=== PATIENT | female | born 1970 | race Caucasian/White ===

== ENCOUNTER → 2017-05-08 | Outpatient (CLI) | payer OTHER ==
--- NOTE | 2017-05-08 15:58 | XR ---
Right knee HISTORY: Chronic right knee pain 3 views of the right knee Bone mineralization, joint spaces and alignment are maintained. Mild spurring at the patellofemoral j oint. No evident joint effusion. IMPRESSION: No acute fracture or dislocation. Some mild osteoarthritic change is suspected.
== END ==
LOC: RADXRMAIN 11:25
PROVIDERS: ATTEND Nurse Practitioner Family
DX: M25.561 Pain in right knee (principal)

== ENCOUNTER → 2018-10-30 | Outpatient (CLI) | payer OTHER ==
--- NOTE | 2018-10-31 11:42 | MM ---
Reason for exam: screening (asymptomatic). Last mammogram was performed 2 years and 4 months ago. Physical Findings: A clinical breast exam by your physician is recommended on an annual basis and results should be correlated with mammographic findings. MG Screening Mammo w CAD Bilateral CC and MLO view(s) were taken. Prior study comparison: June 18, 2016, mammogram, performed at [facility]. May 30, 2015, mammogram, performed at [facility]. The breast tissue is heterogeneously dense. This may lower the sensitivity of mammography. No suspicious abnormality. No significant changes when compared with prior studies. ASSESSMENT: Negative, BI-RAD 1 RECOMMENDATION: Routine screening mammogram of both breasts in 1 year.
== END | disposition home or self-care (01) ==
LOC: RADMAMWWP 07:40
PROVIDERS: ATTEND Obstetrics & Gynecology
DX: Z12.31 Encounter for screening mammogram for malignant neoplasm of breast (principal)
CPT/HCPCS: 77067

== ENCOUNTER → 2019-04-14 | Outpatient (CLI) | payer OTHER ==
--- NOTE | 2019-04-14 11:33 | XR ---
EXAMINATION TYPE: XR Hip Bilateral Complete DATE OF EXAM: 04/14/2019 COMPARISON: NONE HISTORY: Pain TECHNIQUE: 2 views submitted FINDINGS: There is no evidence of erosive change or acute fracture. Hypertrophic change of the acetabulum great er on the left. Mild concentric narrowing of the hip joint bilaterally. IMPRESSION: 1. Bilateral hip arthropathy correlate for femoral acetabular impingement.
--- NOTE | 2019-04-14 11:35 | XR ---
EXAMINATION TYPE: XR knee 4V LT DATE OF EXAM: 04/14/2019 COMPARISON: NONE HISTORY: Pain TECHNIQUE: Four views are submitted. FINDINGS: Mild narrowing patellofemoral joint with hypertrophic change and medial compartment of the knee joint . No erosive changes. Small amount of fluid in the suprapatellar bursa. Osseous structures are intact . No acute fracture seen. IMPRESSION: 1. No acute fracture or dislocation. Small amount of fluid in the suprapatellar bursa. If concern fo r internal derangement of knee correlate with MRI.
== END | disposition home or self-care (01) ==
LOC: RADXRMAIN 10:57
PROVIDERS: ATTEND Pediatrics
DX: M25.562 Pain in left knee (principal); M25.551 Pain in right hip; M25.552 Pain in left hip
CPT/HCPCS: 73521

== ENCOUNTER → 2019-08-20 | Outpatient (CLI) | payer OTHER ==
--- NOTE | 2019-08-20 13:52 | MR ---
EXAMINATION TYPE: MR hip LT wo con DATE OF EXAM: 08/20/2019 COMPARISON: None HISTORY: Pain in left hip / Pain in lt knee TECHNIQUE: Multiplanar, multisequence images of the left hip were acquired without intravenous contrast. FINDINGS: Imaging of the pelvis is suboptimal given patient body habitus. No cam deformity is seen of either femoral head neck junction. The femoral heads maintain a normal ro unded contour. No evidence of avascular necrosis of either hip. Fissure is seen near the chondral lab ral junction however the labrum appears intact given the nonarthrographic examination. Trace amount o f fluid in the left hip is physiologic. No sizable joint effusion. There is increased intensity of th e musculature overlying the greater tuberosity of left hip with trace amount of overlying fluid. No d iscrete tear is seen. Mild thickening along segment of the sigmoid colon likely relates to incomplete distention. No surrounding inflammatory fat stranding IMPRESSION: 1. Insertional gluteal tendinosis without tear. Scant amount of overlying fluid also suggests greater trochanteric bursitis. 2. Mild left femoral acetabular arthropathy. Overall exam is suboptimal given patient body habitus. 3. No evidence of bone marrow edema, avascular necrosis, nor cam deformity of the left hip.
--- NOTE | 2019-08-20 14:16 | MR ---
EXAMINATION TYPE: MR knee LT wo con DATE OF EXAM: 08/20/2019 COMPARISON: 04/14/19 HISTORY: Pain in left hip / Pain in lt knee TECHNIQUE: Multiplanar, multisequence imaging of the left knee is performed without IV contrast. FINDINGS: MEDIAL MENISCUS: Anterior meniscal horn is intact without tear. There is a radial tear of the free ed ge of the posterior horn of the medial meniscus. LATERAL MENISCUS: Anterior and posterior horns are intact without tear. CRUCIATE LIGAMENTS: The anterior and posterior cruciate ligaments are intact and unremarkable. COLLATERAL LIGAMENTS: The medial collateral ligament and lateral collateral ligament complex are inta ct. Slight increased signal of the distal insertional fibers of the medial collateral ligament withou t tear. EXTENSOR MECHANISM: Visualized quadriceps and patellar tendons are intact. Mild increased signal in t he insertional fibers of the quadriceps tendon and patellar tendon. EFFUSION: No significant suprapatellar joint effusion. POPLITEAL CYST: No popliteal/quigley cyst. TRICOMPARTMENT SPACES: Mild patellofemoral compartment joint space narrowing and small patellofemoral compartment osteophytes are seen. Very small osteophyte of the medial tibial plateau. Joint spaces a re aligned. CARTILAGE: There is generalized cartilaginous thinning of the medial compartment cartilage with parti al-thickness defect measuring 1 cm of the weightbearing surface of the femoral condyle. There is sign al heterogeneity of the lateral compartment cartilage and of the lateral facet of the patellar cartil age. BONE MARROW SIGNAL: No focal abnormal marrow signal is appreciated. OTHER: Nonspecific infrapatellar subcutaneous edema. IMPRESSION: 1. Small radial tear of the free edge of the posterior horn of the medial meniscus. 2. Low-grade insertional fiber sprain of the medial collateral ligament. 3. Minimal increased signal in the insertional fibers of the quadriceps tendon and patellar tendon in dicative of mild tendinosis. 4. Mild patellofemoral compartment and very mild medial compartment arthropathy with mild tricompartm ental arthrosis and partial thickness cartilaginous defect of the medial femoral condyle.
== END | disposition home or self-care (01) ==
LOC: RADMRIMAIN 11:07
PROVIDERS: ATTEND Orthopaedic Surgery
DX: S83.242A Other tear of medial meniscus, current injury, left knee, initial encounter (principal); M17.12 Unilateral primary osteoarthritis, left knee; M12.862 Other specific arthropathies, not elsewhere classified, left knee; M12.852 Other specific arthropathies, not elsewhere classified, left hip; M76.02 Gluteal tendinitis, left hip; R93.6 Abnormal findings on diagnostic imaging of limbs

== ENCOUNTER → 2020-02-05 | Outpatient (CLI) | payer OTHER ==
--- NOTE | 2020-02-05 18:20 | XR ---
EXAMINATION TYPE: XR foot complete bilateral DATE OF EXAM: 02/05/2020 CLINICAL HISTORY: Bilateral foot pain. Right foot heel pain. Left foot pain in toe. TECHNIQUE: Frontal, lateral and oblique images of bilateral feet obtained. COMPARISON: None. FINDINGS: There is no acute fracture/dislocation evident of the bilateral feet. The overlying soft tissue appears unremarkable. The joint spaces in the bilateral feet are preserved. Bilateral planta r spurs. Accessory ossicles are seen bilaterally, including os navicular on the right and questionab le tiny os navicular on the left. IMPRESSION: 1. Bilateral plantar spurs. 2. No fracture or dislocation of the bilateral feet.
== END | disposition home or self-care (01) ==
LOC: RADXRMAIN 11:24
PROVIDERS: ATTEND Physician Assistant
DX: M79.672 Pain in left foot (principal)

== ENCOUNTER → 2020-07-08 | Outpatient (CLI) | payer OTHER ==
--- NOTE | 2020-07-08 12:21 | XR ---
EXAM TYPE: LUMBAR SPINE X RAY SERIES COMPARISON: NONE HISTORY: Pain TECHNIQUE: 4 views are submitted. FINDINGS: Alignment is anatomic. The pedicles are intact. The transverse processes are intact. There is grad e 1 anterolisthesis L4 and L5 with multilevel moderate degenerative disc disease and facet arthropath y. Anterior hypertrophic spurring noted. IMPRESSION: 1. Multilevel moderate to severe degenerative disc disease and facet arthropathy. Grade 1 anterolisth esis L4 on L5.
--- NOTE | 2020-07-08 12:21 | XR ---
EXAMINATION TYPE: XR thoracic spine complete DATE OF EXAM: 07/08/2020 CLINICAL HISTORY: pain TECHNIQUE: Frontal, lateral, and swimmer's view of thoracic spine are obtained. COMPARISON: None. FINDINGS: Thoracic spine show satisfactory alignment without evidence of acute fracture or dislocatio n. Vertebral body heights are preserved. Mild degenerative disc space narrowing and spondylosis iden tified. Visualized ribs are unremarkable. IMPRESSION: No acute fracture or dislocation is seen in the thoracic spine. ICD 10 NO FRACTURE, INIT IAL EVALUATION
== END | disposition home or self-care (01) ==
LOC: RADXRMAIN 10:49
PROVIDERS: ATTEND Physician Assistant
DX: M51.36 Other intervertebral disc degeneration, lumbar region (principal); M43.16 Spondylolisthesis, lumbar region; M47.816 Spondylosis without myelopathy or radiculopathy, lumbar region; M54.6 Pain in thoracic spine
CPT/HCPCS: 72072; 72110

== ENCOUNTER → 2021-02-01 | Outpatient (CLI) | payer OTHER ==
--- NOTE | 2021-02-01 14:42 | CT ---
EXAMINATION TYPE: CT sinus wo con DATE OF EXAM: 02/01/2021 COMPARISON: None HISTORY: Right side of nose and right ear congestion. CT DLP: 624.[address] of the paranasal sinuses was performed in the axial and coronal planes. Bone and soft tissue settings are submitted. The paranasal sinuses demonstrate normal aeration and development. The paranasal sinuses are free of mucosal thickening or air fluid level. The osteal meatal units are patent bilaterally. The nasal septum is midline. No bony destructive changes are seen within the field of view. IMPRESSION: Normal unenhanced CT of the paranasal sinuses.
== END | disposition home or self-care (01) ==
LOC: RADCTMAIN 14:10
PROVIDERS: ATTEND Pediatrics
DX: J34.89 Other specified disorders of nose and nasal sinuses (principal)
CPT/HCPCS: 70486

== ENCOUNTER → 2021-03-24 | Outpatient (CLI) | payer OTHER ==
--- NOTE | 2021-03-29 08:16 | MM ---
Reason for exam: screening (asymptomatic). Last mammogram was performed 1 year ago. Physical Findings: A clinical breast exam by your physician is recommended on an annual basis and results should be correlated with mammographic findings. MG Screening Mammo w CAD Bilateral CC and MLO view(s) were taken. Prior study comparison: March 18, 2020, bilateral MG screening mammo w CAD. October 30, 2018, bilateral MG screening mammo w CAD. There is chronic nodularity in the left breast. No significant changes when compared with prior studies. ASSESSMENT: Benign, BI-RAD 2 RECOMMENDATION: Routine screening mammogram of both breasts in 1 year.
== END | disposition home or self-care (01) ==
LOC: RADMAMWWP 11:10
PROVIDERS: ATTEND Obstetrics & Gynecology
DX: Z12.31 Encounter for screening mammogram for malignant neoplasm of breast (principal)
CPT/HCPCS: 77067

== ENCOUNTER → 2022-03-29 | Outpatient (CLI) | payer OTHER ==
--- NOTE | 2022-04-06 17:42 | MM ---
Reason for Exam: Screening (asymptomatic). Last screening mammogram was performed 12 month(s) ago. Patient History: Menarche at age 13. First Full-Term at age 27. Patient has history of breast feeding. Last menstrual period: 09/26/2021 Risk Values: Courtney 5 year model risk: 1.1%. NCI Lifetime model risk: 9.9%. Prior Study Comparison: 10/30/2018 Bilateral Screening Mammogram, [facility]. 03/18/2020 Bilateral Screening Mammogram, [facility]. 03/24/2021 Bilateral Screening Mammogram, [facility]. Tissue Density: The breast tissue is heterogeneously dense. This may lower the sensitivity of mammography. Findings: Analyzed By CAD. Intramammary lymph node in the left There is no suspicious group of microcalcifications or new suspicious mass in either breast. Overall Assessment: Benign, BI-RAD 2 Management: Screening Mammogram of both breasts in 1 year. A clinical breast exam by your physician is recommended on an annual basis and results should be correlated with mammographic findings. Electronically signed and approved by: Chapo Ibarra DO
== END | disposition home or self-care (01) ==
LOC: RADMAMWWP 16:02
PROVIDERS: ATTEND Obstetrics & Gynecology
DX: Z12.31 Encounter for screening mammogram for malignant neoplasm of breast (principal)
CPT/HCPCS: 77067

== ENCOUNTER → 2023-04-05 | Outpatient (CLI) | payer OTHER ==
--- NOTE | 2023-04-08 09:59 | MM ---
Reason for Exam: Screening (asymptomatic). Last screening mammogram was performed 12 month(s) ago. Patient History: Menarche at age 13. First Full-Term at age 27. Postmenopausal. Patient has history of breast feeding. Risk Values: Courtney 5 year model risk: 1.1%. NCI Lifetime model risk: 9.7%. Prior Study Comparison: 03/18/2020 Bilateral Screening Mammogram, [facility]. 03/24/2021 Bilateral Screening Mammogram, [facility]. 03/29/2022 Bilateral MG screening mammo w CAD, [facility]. Tissue Density: The breast tissue is heterogeneously dense. This may lower the sensitivity of mammography. Findings: Analyzed By CAD. There is no suspicious group of microcalcifications or new suspicious mass in either breast. Overall Assessment: Benign, BI-RAD 2 Management: Screening Mammogram of both breasts in 1 year. . Patient should continue monthly self-breast exams. A clinical breast exam by your physician is recommended on an annual basis. This exam should not preclude additional follow-up of suspicious palpable abnormalities. Note on Courtney scores and lifetime risk: 1. A Courtney score greater than 3% is considered moderate risk. If this is the case, consider specialist referral to assess eligibility for a risk reducing agent. 2. If overall lifetime risk for the development of breast cancer is 20% or higher, the patient may qualify for future screening with alternating mammogram and breast MRI. Electronically signed and approved by: Branden Chaves M.D. Radiologis
== END | disposition home or self-care (01) ==
LOC: RADMAMWWP 10:56
PROVIDERS: ATTEND Obstetrics & Gynecology
DX: Z12.31 Encounter for screening mammogram for malignant neoplasm of breast (principal); Z78.0 Asymptomatic menopausal state
CPT/HCPCS: 77067

== ENCOUNTER → 2024-05-08 | Outpatient (CLI) | payer BC ==
--- NOTE | 2024-05-12 18:45 | MM ---
Reason for Exam: Screening (asymptomatic). Last mammogram was performed 1 year(s) and 1 month(s) ago. Patient History: Menarche at age 13. First Full-Term at age 27. Postmenopausal. Patient has history of breast feeding. Hormonal Contraceptives, from age 17 until age 40. Risk Values: Courtney 5 year model risk: 1.2%. NCI Lifetime model risk: 9.6%. Prior Study Comparison: 03/24/2021 Bilateral Screening Mammogram, [facility]. 03/29/2022 Bilateral MG screening mammo w CAD, [facility]. 04/05/2023 Bilateral MG screening mammo w CAD, [facility]. Tissue Density: The breasts are heterogeneously dense, which may obscure small masses. Findings: Analyzed By CAD. The 2 areas of centrally located asymmetric density right cc view of middle depth are more defined. This may represent superimposition shadow but further evaluation is recommended. Chronic nodularity left breast along with additional unchanged areas of asymmetric density on both sides. Overall Assessment: Incomplete: need additional imaging evaluation, BI-RAD 0 Management: Special View Mammogram of the right breast. Additional views to include spot 3-D CC, 3-D CC rolled, and 3-D lateral views. [facility] will attempt to contact patient to return for supplemental views and ultrasound if indicated. [facility], , 05/12/2024 6:42 PM. Electronically signed and approved by: Alie Harrison M.D. Radiologist
== END | disposition home or self-care (01) ==
LOC: RADMAMWWP 13:43
PROVIDERS: ATTEND Pediatrics
CPT/HCPCS: 77067

== ENCOUNTER → 2024-05-20 | Outpatient (CLI) | payer BC ==
--- NOTE | 2024-05-20 10:22 | MM ---
Reason for Exam: Additional evaluation requested from abnormal screening. Last screening mammogram was performed less than 1 month ago. Patient History: Menarche at age 13. First Full-Term at age 27. Postmenopausal. Patient has history of breast feeding. Hormonal Contraceptives, from age 17 until age 40. Risk Values: Courtney 5 year model risk: 1.2%. NCI Lifetime model risk: 9.6%. Tissue Density: Right: The breasts are heterogeneously dense, which may obscure small masses. Findings: Analyzed By CAD. The questioned areas of asymmetric density on the CC view becomes less defined on spot compression with an appearance unchanged from older priors. Findings compatible with superimposition shadow. No suspicious persisting abnormality. Overall Assessment: Benign, BI-RAD 2 Management: Screening Mammogram of both breasts in 1 year. Results were given to the patient verbally at the time of exam. Patient should continue monthly self-breast exams. A clinical breast exam by your physician is recommended on an annual basis. This exam should not preclude additional follow-up of suspicious palpable abnormalities. Note on Courtney scores and lifetime risk: 1. A Courtney score greater than 3% is considered moderate risk. If this is the case, consider specialist referral to assess eligibility for a risk reducing agent. 2. If overall lifetime risk for the development of breast cancer is 20% or higher, the patient may qualify for future screening with alternating mammogram and breast MRI. [facility], , 05/20/2024 10:18 AM. Electronically signed and approved by: Alie Harrison M.D. Radiologist
== END | disposition home or self-care (01) ==
LOC: RADMAMWWP 09:55
PROVIDERS: ATTEND Pediatrics
CPT/HCPCS: 77061; 77065